=== PATIENT | female | born 1990 | race African-American/Black ===

== ENCOUNTER 2017-05-03 17:22 | Emergency (ER) | payer MEDICAID ==
[~2017-05-03] VITALS: Ht 162.6 cm; Wt 136.0 kg
[2017-05-03 17:27] VITALS: BP 155/87
[2017-05-03] MEDS ORDERED: simvastatin (17:30)
== END 2017-05-03 19:46 | disposition left against medical advice (07) ==
LOC: ER 17:22
DX: Z53.21 Procedure and treatment not carried out due to patient leaving prior to being seen by health care provider (principal)